=== PATIENT | male | born 1985 | race Caucasian/White ===

== ENCOUNTER → 2016-11-01 | Emergency (ER) | payer MEDICAID ==
[~2016-11-01] VITALS: Ht 180.3 cm; Wt 90.7 kg
--- NOTE | 2016-11-01 19:23 | NUR ---
DR. MENDEZ AT BEDSIDE.
--- NOTE | 2016-11-01 20:03 | NUR ---
PATIENT RETURNED FROM CT SCAN, NO DISTRESS NOTED.
--- NOTE | 2016-11-01 21:41 | NUR ---
Giovanni gunter in ED - 11/01/16 at 2144 by [id number] Patient discharged to home in stable conditon. Written and verbal after care instructions given. Patient verbalizes understanding of instructions.
[2016-11-01 21:43] VITALS: BP 151/84
--- NOTE | 2016-11-01 21:44 | NUR ---
PATIENT LEFT AMA, FORMS SIGNED.
== END | disposition home or self-care (01) ==
LOC: ER 19:02
DX: M54.5 Low back pain (principal); M54.2 Cervicalgia; F41.9 Anxiety disorder, unspecified; R20.9 Unspecified disturbances of skin sensation; F13.239 Sedative, hypnotic or anxiolytic dependence with withdrawal, unspecified; F19.939 Other psychoactive substance use, unspecified with withdrawal, unspecified; Z98.1 Arthrodesis status; Z98.890 Other specified postprocedural states
CPT/HCPCS: 72125; 72131; A4663